=== PATIENT | female | born 1955 | race Caucasian/White ===

== ENCOUNTER 2017-06-01 19:13 | Emergency (ER) | payer OTHER ==
[~2017-06-01] VITALS: Ht 167.6 cm; Wt 65.2 kg
[2017-06-01 19:14] VITALS: BP 128/76
[2017-06-01] MEDS ORDERED: DIPH,PERTUSS(ACELL),TET VAC/PF 0.5 ML IM-VACC ONE ×4 (19:30→20:00)
[2017-06-01 20:12] LABS: HEMATOCRIT 37.7 % (34.6-47.8); HEMOGLOBIN 12.5 g/dL (11.7-16.4); WHITE BLOOD COUNT 9.9 x10^3/uL (3.4-10)
[2017-06-01] MEDS ORDERED: LIDOCAINE 1%, 20ML ONE (20:13)
[2017-06-01] MEDS ORDERED: BACITRACIN ZINC OINT 500U/GM, 0.9 GM ONE (20:13)
[2017-06-01 20:25] LABS: ASPARTATE AMINO TRANSFERASE 21 U/L (15-37); BLOOD UREA NITROGEN 21 mg/dL (7-18)
== END 2017-06-01 21:49 | disposition home or self-care (01) ==
LOC: ED 21:22
DX: S02.40FA Zygomatic fracture, left side, initial encounter for closed fracture (principal); S01.81XA Laceration without foreign body of other part of head, initial encounter; S60.511A Abrasion of right hand, initial encounter; S00.81XA Abrasion of other part of head, initial encounter; W01.0XXA Fall on same level from slipping, tripping and stumbling without subsequent striking against object, initial encounter; Y93.K1 Activity, walking an animal; Y99.8 Other external cause status; Y92.410 Unspecified street and highway as the place of occurrence of the external cause
CPT/HCPCS: 12011; 36415; 70450; 70486; 72125; 80053; 81001; 85025; 87086; 90471; 90715; 93005

== ENCOUNTER 2018-02-14 10:00 | Emergency (ER) | payer OTHER ==
[~2018-02-14] VITALS: Ht 167.6 cm; Wt 65.3 kg
[2018-02-14 10:27] LABS: BASOPHILS # (AUTO) 0.04 x10^3/uL (0-0.1); BASOPHILS % (AUTO) 0 % (0-1); EOSINOPHILS # (AUTO) 0.02 x10^3/uL (0-0.4); EOSINOPHILS % (AUTO) 0 % (1-7); LYMPHOCYTES # (AUTO) 2.39 x10^3/uL (1-3.4); LYMPHOCYTES % (AUTO) 26 % (22-44); MD NO; MEAN CORPUSCULAR HGB CONC 33.5 g/dL (32.4-35.8); MEAN CORPUSCULAR VOLUME 92.5 fL (80-100); MEAN PLATELET VOLUME 7.8 fL (7.4-10.4); MONOCYTES # (AUTO) 0.39 x10^3/uL (0.2-0.8); MONOCYTES % (AUTO) 4 % (2-9); NEUTROPHILS # (AUTO) 6.28 x10^3/uL (1.8-6.8); NEUTROPHILS % (AUTO) 69 % (42-75); PLATELET COUNT 292 x10^3/uL (130-400); RED BLOOD COUNT 4.19 x10^6/uL (3.82-5.3); RED CELL DISTRIBUTION WIDTH 13.7 % (9.6-15.2)
[2018-02-14 10:38] LABS: ALBUMIN 3.7 g/dL (3.4-5.0); ANION GAP 5 mmol/L (5-15); CALCIUM 8.8 mg/dL (8.5-10.1); CHLORIDE 109 mmol/L (98-107)
[2018-02-14 10:42] LABS: ALANINE AMINOTRANSFERASE 22 U/L (12-78); ALKALINE PHOSPHATASE 74 U/L (45-117); BILIRUBIN,TOTAL 0.6 mg/dL (0.2-1.0); CREATININE 1.07 mg/dL (0.55-1.02); TOTAL PROTEIN 6.9 g/dL (6.4-8.2)
[2018-02-14] MEDS ORDERED: LORA0.5T PO (11:46)
[2018-02-14] MEDS ORDERED: BUPR100T11 PO (11:46)
[2018-02-14] MEDS ORDERED: SODIUM CHLORIDE FLUSH 10ML SYR IVF ONE (12:00)
[2018-02-14 13:09] LABS: MICROSCOPIC AUTO
[2018-02-14 13:14] LABS: CULTURE INDICATED? YES
[2018-02-14] MEDS ORDERED: OMNIPAQUE 350 MG/ML, 100ML BOTTLE ONE (13:20)
[2018-02-14 15:08] VITALS: BP 115/73
== END 2018-02-14 15:10 | disposition home or self-care (01) ==
LOC: ED 15:04
DX: R10.11 Right upper quadrant pain (principal); R11.2 Nausea with vomiting, unspecified; R19.7 Diarrhea, unspecified
CPT/HCPCS: 36415; 74177; 76700; 80053; 81001; 83690; 85025; 87086; 99285; Q9967

== ENCOUNTER 2019-01-08 13:39 | Emergency (ER) | payer MEDICARE, OTHER ==
[~2019-01-08] VITALS: Ht 167.6 cm; Wt 64.0 kg
[~2019-01-08 13:39] MED LIST: BUPR100T11 PO; LORA0.5T PO
--- NOTE | 2019-01-08 13:53 | NUR ---
pt biba for c/o feeling nauseated upon standing this pm at work. pt states she took an extra atenlol (takes for tremors) this am as she had an increase in tremors this am. pt denies dizziness, denies syncope. denies cp, denies sob. 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 bp 102/67 on arrival. bg 156 district captain per ems. EKG taken by EDT on arrival. pt placed on all monitors, call light in reach. pt a&o, resps even and unlabored, nsr on color television console monitor rate 70s with no ectopy. report given to primary RN Janneth.
[2019-01-08] MEDS ORDERED: ATEN25TA PO (13:54)
[2019-01-08] MEDS ORDERED: PARO10TA3 PO (13:54)
--- NOTE | 2019-01-08 13:55 | NUR ---
pt biba for c/o feeling nauseated upon standing this pm at work. pt states she took an extra atenlol (takes for tremors) this am as she had an increase in tremors this am. pt denies dizziness, denies syncope. denies cp, denies sob. 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 bp 102/67 on arrival. per triage note
[2019-01-08 13:56] LABS: BASOPHILS # (AUTO) 0.03 x10^3/uL (0-0.1); BASOPHILS % (AUTO) 0 % (0-1); EOSINOPHILS # (AUTO) 0.03 x10^3/uL (0-0.4); EOSINOPHILS % (AUTO) 0 % (1-7); LYMPHOCYTES # (AUTO) 1.44 x10^3/uL (1-3.4); LYMPHOCYTES % (AUTO) 20 % (22-44); MD NO; MEAN CORPUSCULAR HEMOGLOBIN 32.8 pg (27.0-34.8); MEAN CORPUSCULAR HGB CONC 34.6 g/dL (32.4-35.8); MEAN CORPUSCULAR VOLUME 94.7 fL (80-100); MEAN PLATELET VOLUME 7.4 fL (7.4-10.4); MONOCYTES # (AUTO) 0.36 x10^3/uL (0.2-0.8); MONOCYTES % (AUTO) 5 % (2-9); NEUTROPHILS # (AUTO) 5.51 x10^3/uL (1.8-6.8); NEUTROPHILS % (AUTO) 75 % (42-75); PLATELET COUNT 261 x10^3/uL (130-400); RED BLOOD COUNT 3.61 x10^6/uL (3.82-5.3); RED CELL DISTRIBUTION WIDTH 13.8 % (9.6-15.2)
--- NOTE | 2019-01-08 13:57 | NUR ---
vss stable pt is resting now
[2019-01-08 14:06] LABS: ANION GAP 6 mmol/L (5-15); CALCIUM 8.3 mg/dL (8.5-10.1); CHLORIDE 114 mmol/L (98-107); CREATININE 1.16 mg/dL (0.55-1.02)
--- NOTE | 2019-01-08 15:09 | NUR ---
given all dc instruction pt undersood pt up ambulated to check out after iv was out
[2019-01-08 15:10] VITALS: BP 91/58
== END 2019-01-08 15:12 | disposition home or self-care (01) ==
LOC: ED 15:00
DX: I95.2 Hypotension due to drugs (principal); F32.9 Major depressive disorder, single episode, unspecified
CPT/HCPCS: 36415; 80048; 85025; 93005; 99284